=== PATIENT | female | born 1975 | race Caucasian/White ===

== ENCOUNTER 2018-08-14 09:21 | Outpatient (CLI) | payer OTHER | END 2018-08-14 09:22 | disposition home or self-care (01) | LOC: BICMAMMO 09:21 | PROVIDERS: ATTEND Internal Medicine | DX: Z12.31 Encounter for screening mammogram for malignant neoplasm of breast (principal); R92.1 Mammographic calcification found on diagnostic imaging of breast; Z98.82 Breast implant status | CPT/HCPCS: 77063; 77067 ==

== ENCOUNTER 2019-07-20 07:08 | Outpatient (CLI) | payer OTHER ==
--- NOTE | 2019-07-20 08:53 | MRI ---
LUMBAR SPINE MRI NONCONTRAST: COMPARISON: No prior imaging. INDICATION: Intervertebral disk disorder, lumbar radiculopathy, back pain. FINDINGS: Conus medullaris shows normal morphology and terminates at the T12 level. There is disk degenerative T2 signal reduction at the L2-3, L4-5, and L5-S1 levels as well as associated disk space narrowing. No acute marrow edema or compression deformity. No significant subluxation. Modic end plate degene rative signal alteration of L5-S1 is present, compatible with Modic type I degenerative change. Intrinsic T1 hyperintensity just inferior to the conus medullaris could relate to a component of lipo matous hypertrophy of the filum terminale. Incidental note of extrarenal right renal pelvis within the imaged retroperitoneum. L5-S1: There is a broad-based disk-osteophyte with slight effacement of the ventral aspect of the te rminal thecal sac. Mild bilateral neural foraminal narrowing. L4-5: Left asymmetric disk bulge with focal left subarticular protrusion and resultant impingement o f the traversing left L5 nerve root. There is mild bilateral neural foraminal stenosis. L3-4: Broad-based disk bulge is present without high-grade central canal or neural foraminal stenosi s. There is slight effacement of the ventral thecal sac. L2-3: Mild effacement of the ventral thecal sac due to mild disk bulge. No high-grade foraminal yulisa nosis. L1-2: No significant central canal or neural foraminal stenosis. Mild bilateral multilevel degenerative facet hypertrophy is present. IMPRESSION: Degenerative changes of the lumbar spine. Findings are most pronounced at the left subarticular zone of L4-5 due to disk protrusion which impinges the traversing left L5 nerve root. POS: C
== END 2019-07-20 07:09 | disposition home or self-care (01) ==
LOC: SCSMRI 07:08
PROVIDERS: ATTEND Specialist
DX: M51.17 Intervertebral disc disorders with radiculopathy, lumbosacral region (principal); M47.26 Other spondylosis with radiculopathy, lumbar region
CPT/HCPCS: 72148

== ENCOUNTER 2019-08-28 08:20 | Outpatient (CLI) | payer OTHER ==
--- NOTE | 2019-08-28 09:37 | MMO ---
Bilateral MAMMO Bilat Screen [facility]. CLINICAL HISTORY: Patient is 44 years old and is seen for screening. The patient has a history of bilateral Implants in 2006. VIEWS: The views performed were: . FILMS COMPARED: The present examination has been compared to prior imaging studies performed at [facility] on 04/15/2017 and 08/14/2018. This study has been interpreted with the assistance of computer-aided detection. MAMMOGRAM FINDINGS: The breasts are heterogeneously dense, which could obscure a lesion on mammography. Benign calcifications are noted bilaterally. Bilateral implants are stable. There are no suspicious masses, suspicious calcifications, or new areas of architectural distortion. IMPRESSION: THERE IS NO MAMMOGRAPHIC EVIDENCE OF MALIGNANCY. A ROUTINE FOLLOW-UP MAMMOGRAM IN 1 YEAR IS RECOMMENDED. THE RESULTS OF THIS EXAM WERE SENT TO THE PATIENT. ACR BI-RADS Category 2 - Benign finding MAMMOGRAPHY NOTE: 1. A negative mammogram report should not delay a biopsy if a dominant of clinically suspicious mass is present. 2. Approximately 10% to 15% of breast cancers are not detected by mammography. 3. Adenosis and dense breasts may obscure an underlying neoplasm. Reported by: DINORA DEVRIES MD Electonically Signed: [id number]
== END 2019-08-28 08:21 | disposition home or self-care (01) ==
LOC: BICMAMMO 08:20
PROVIDERS: ATTEND Family Medicine
DX: Z12.31 Encounter for screening mammogram for malignant neoplasm of breast (principal); Z98.82 Breast implant status
CPT/HCPCS: 77063; 77067

== ENCOUNTER 2020-09-03 08:21 | Outpatient (CLI) | payer OTHER ==
--- NOTE | 2020-09-03 09:02 | MMO ---
Bilateral MAMMO Bilat Screen [facility]. CLINICAL HISTORY: Patient is 45 years old and is seen for screening. The patient has no family history of breast cancer. The patient has no personal history of cancer. The patient has a history of bilateral Implants in 2006. VIEWS: The views performed were: bilateral craniocaudal; bilateral mediolateral oblique; and bilateral Implant displaced with tomosynthesis. FILMS COMPARED: The present examination has been compared to prior imaging studies performed at [facility] on 04/15/2017, 08/14/2018 and 08/28/2019. This study has been interpreted with the assistance of computer-aided detection. MAMMOGRAM FINDINGS: The breasts are heterogeneously dense, which could obscure a lesion on mammography. There are no suspicious masses, suspicious calcifications, or new areas of architectural distortion. IMPRESSION: THERE IS NO MAMMOGRAPHIC EVIDENCE OF MALIGNANCY. A ROUTINE FOLLOW-UP MAMMOGRAM IN 1 YEAR IS RECOMMENDED. THE RESULTS OF THIS EXAM WERE SENT TO THE PATIENT. ACR BI-RADS Category 1 - Negative MAMMOGRAPHY NOTE: 1. A negative mammogram report should not delay a biopsy if a dominant of clinically suspicious mass is present. 2. Approximately 10% to 15% of breast cancers are not detected by mammography. 3. Adenosis and dense breasts may obscure an underlying neoplasm. Reported by: JUNE MUNOZ MD Electonically Signed: [id number]
== END 2020-09-03 08:22 | disposition home or self-care (01) ==
LOC: BICMAMMO 08:21
PROVIDERS: ATTEND Family Medicine
DX: Z12.31 Encounter for screening mammogram for malignant neoplasm of breast (principal); Z98.82 Breast implant status
CPT/HCPCS: 77063; 77067

== ENCOUNTER 2021-11-04 09:19 | Outpatient (CLI) | payer OTHER | END 2021-11-04 09:20 | disposition home or self-care (01) | LOC: BICMAMMO 09:19 | PROVIDERS: ATTEND Family Medicine | DX: Z12.31 Encounter for screening mammogram for malignant neoplasm of breast (principal); Z98.82 Breast implant status | CPT/HCPCS: 77063; 77067 ==

== ENCOUNTER 2023-12-08 10:02 | Outpatient (CLI) | payer OTHER | END 2023-12-08 10:03 | disposition home or self-care (01) | LOC: BICMAMMO 10:02 | PROVIDERS: ATTEND Family Medicine | DX: Z12.31 Encounter for screening mammogram for malignant neoplasm of breast (principal); Z98.82 Breast implant status | CPT/HCPCS: 77063; 77067 ==